=== PATIENT | female | born 1950 | race Caucasian/White ===

== ENCOUNTER 2017-11-14 09:59 | Day surgery (SDC) | payer MEDICARE, BC ==
[~2017-11-14 09:59] MED LIST: Acetaminophen TAB* 325 MG PO PRN; Buffered Lidocaine 0.9% SYRIN* 5 ML/SYR SYRINGE INTRADERM ONE
[2017-11-14] MEDS ORDERED: Midazolam* 1 MG/ML 5 ML VIAL (5 MG) ONE (11:10)
[2017-11-14] MEDS ORDERED: Cyclopentolate 1% OPTH.SOL* 2 ML BTL ONE (11:17)
[2017-11-14] MEDS ORDERED: Povidone Iodine 5% OPTH* 30 ML BTL ONE (11:17)
[2017-11-14] MEDS ORDERED: Lidocaine 1%* 5 ML VIAL ONE (11:17)
[2017-11-14] MEDS ORDERED: acetaZOLAMIDE TAB* 250 MG ONE (11:17)
[2017-11-14] MEDS ORDERED: Phenylephrine 2.5% OPTH.SOL* 2 ML BTL ONE (11:17)
[2017-11-14] MEDS ORDERED: Neomycin/Polymy/Dex OPHTH.OIN* 3.5 GM ONE (11:17)
[2017-11-14] MEDS ORDERED: Ketorolac 0.5% OPHTH (NF) 0.5 % 5 ML BTL ONE (11:18)
[2017-11-14] MEDS ORDERED: Tetracaine 0.5% OPTH.SOL 4 ML* 1 DROP BTL ONE (11:18)
[2017-11-14] MEDS ORDERED: Tropicamide 1% OPTH.SOL* BTL ONE (11:18)
[2017-11-14 12:21] VITALS: BP 176/69
--- NOTE | 2017-11-14 21:50 | OP ---
DATE OF OPERATION: 11/14/17 - [facility] DATE OF : 48 SURGEON: Jose Toney MD ANESTHESIA: Monitored anesthesia care. PRE-OP DIAGNOSIS: Cataract, right eye. POST-OP DIAGNOSIS: Cataract, right eye. PROCEDURE PERFORMED: Extracapsular cataract extraction of the right eye with intraocular lens implant. IMPLANTS: SN60WF 9.5 diopter lens to the right eye. DESCRIPTION OF PROCEDURE: The patient was given phenylephrine 2.5% and cyclopentolate 1% eyedrops to the operative eye in the preoperative area. The patient was taken to the operating room where a time-out was taken to identify the correct patient, site, and side of the surgery. The patient's right eye was prepped and draped in the usual sterile fashion with 5% Betadine. A second time- out was taken to verify the correct patient, site and side of the surgery , and correct lens implant. A lid speculum was placed to the right eye. A 1- mm paracentesis blade was used to make a clear corneal incision in the superotemporal position. Preservative-free 1% lidocaine was injected into the anterior chamber. DisCoVisc was then injected into the anterior chamber. A 2.75 -mm keratome blade was used to make a triplanar incision at the inferotemporal position. A cystotome initiated a capsulorrhexis, which was completed with Utrata forceps in a continuous and curvilinear manner. Hydrodissection of the lens was performed with BSS on a cannula. The lens could be spun in the capsular bag. The phacoemulsification handpiece was used with a divide-and- conquer technique to remove the nucleus with 8.44 CDE. The I/A handpiece then removed the residual cortical lens material. DisCoVisc was injected to inflate the capsular bag. The planned SN60WF 9.5 diopter lens was injected into the capsular bag. The residual DisCoVisc was removed from the eye with the I/A handpiece. The corneal incisions were hydrated and no leaks occurred at physiologic pressure around 20 mmHg per palpation. The lid speculum was removed and drapes removed. Maxitrol ointment was placed on the surface of the operative eye. An adhesive patch and shield was then placed on the operative eye. The patient was taken to the postoperative area in stable condition. [id number]/[facility] #: [id number] [facility]
== END 2017-11-14 12:22 | disposition home or self-care (01) ==
LOC: OREAST 09:59
PROVIDERS: ATTEND Student in an Organized Health Care Education/Training Program
DX: H25.11 Age-related nuclear cataract, right eye (principal); H43.813 Vitreous degeneration, bilateral; I34.0 Nonrheumatic mitral (valve) insufficiency; M81.0 Age-related osteoporosis without current pathological fracture; E78.5 Hyperlipidemia, unspecified; I10 Essential (primary) hypertension
CPT/HCPCS: A9270-GY; J2250; V2632

== ENCOUNTER 2017-11-21 08:44 | Day surgery (SDC) | payer MEDICARE, BC ==
[2017-11-21] MEDS ORDERED: Midazolam* 1 MG/ML 2 ML VIAL (2 MG) ONE ×2 (10:02→10:08)
[2017-11-21 10:53] VITALS: BP 151/71
[2017-11-21] MEDS ORDERED: Povidone Iodine 5% OPTH* 30 ML BTL ONE (13:58)
[2017-11-21] MEDS ORDERED: Phenylephrine 2.5% OPTH.SOL* 2 ML BTL ONE (13:58)
[2017-11-21] MEDS ORDERED: Ketorolac 0.5% OPHTH (NF) 0.5 % 5 ML BTL ONE (13:58)
[2017-11-21] MEDS ORDERED: Tropicamide 1% OPTH.SOL* BTL ONE (13:58)
[2017-11-21] MEDS ORDERED: Cyclopentolate 1% OPTH.SOL* 2 ML BTL ONE (13:58)
[2017-11-21] MEDS ORDERED: Neomycin/Polymy/Dex OPHTH.OIN* 3.5 GM ONE (13:58)
[2017-11-21] MEDS ORDERED: Lidocaine 1%* 5 ML VIAL ONE (13:58)
[2017-11-21] MEDS ORDERED: acetaZOLAMIDE TAB* 250 MG ONE (13:58)
[2017-11-21] MEDS ORDERED: Tetracaine 0.5% OPTH.SOL 4 ML* 1 DROP BTL ONE (13:58)
--- NOTE | 2017-11-21 14:02 | OP ---
DATE OF OPERATION: 11/21/17 LOCATED WITHIN [facility] DATE OF : 48 SURGEON: Jose Toney MD ANESTHESIA: Monitored anesthesia care. PRE-OP DIAGNOSIS: Cataract, left eye. POST-OP DIAGNOSIS: Cataract, left eye. OPERATIVE PROCEDURE: Extracapsular cataract extraction of the left eye with intraocular lens implant. IMPLANTS: SN60WF 8.5 Diopter lens to the left eye. COMPLICATIONS: None. DESCRIPTION OF PROCEDURE: The patient was given phenylephrine 2.5% and cyclopentolate 1% eye drops to the operative eye in the preoperative area. The patient was taken to the operating room where a time-out was taken to identify the correct patient, site, and side of the surgery. The patient's left eye was prepped and draped in the usual sterile fashion with 5% Betadine. A second time -out was taken to verify the correct patient, site and side of the surgery, and correct lens implant. A lid speculum was placed to the left eye. A 1-mm paracentesis blade was used to make a clear corneal incision in the inferotemporal position. Preservative-free 1% lidocaine was injected into the anterior chamber. DisCoVisc was then injected into the anterior chamber. A 2.75 mm keratome blade was used to make a triplanar incision at the superotemporal position. A cystotome initiated a capsulorrhexis, which was completed with Utrata forceps in a continuous and curvilinear manner. Hydrodissection of the lens was performed with BSS on a cannula. The lens could be spun in the capsular bag. The phacoemulsification handpiece was used with a ueretb-[id number] technique to remove the nucleus with 9.95 CDE. The I/ A handpiece then removed the residual cortical lens material. DisCoVisc was injected to inflate the capsular bag. The planned SN60WF 8.5 Diopter lens was injected into the capsular bag. The residual DisCoVisc was removed from the eye with the I/A handpiece. The corneal incisions were hydrated and no leaks occurred at physiologic pressure around 20 mmHg per palpation. The lid speculum was removed and drapes removed. Maxitrol ointment was placed to the surface of the operative eye. An adhesive patch and shield was then placed on the operative eye. The patient was taken to the postoperative area in stable condition. [id number]/[facility] #: [id number] [facility]
== END 2017-11-21 10:50 | disposition home or self-care (01) ==
LOC: OREAST 08:44
PROVIDERS: ATTEND Student in an Organized Health Care Education/Training Program
DX: H25.12 Age-related nuclear cataract, left eye (principal); H43.813 Vitreous degeneration, bilateral; I10 Essential (primary) hypertension; E78.5 Hyperlipidemia, unspecified; M81.0 Age-related osteoporosis without current pathological fracture; I34.0 Nonrheumatic mitral (valve) insufficiency; M19.90 Unspecified osteoarthritis, unspecified site
CPT/HCPCS: A9270-GY; J2250; V2632

== ENCOUNTER 2021-11-12 06:45 | Observation (INO) ==
[~2021-11-12 06:45] MED LIST changes: -Acetaminophen TAB* 325 MG PO PRN; -Buffered Lidocaine 0.9% SYRIN* 5 ML/SYR SYRINGE INTRADERM ONE; +Buffered Lidocaine 1% SYRIN 1 ml INTRADERM ONE; +Famotidine IV 10 MG/ML 2 ml VIAL (20 mg) IV ONE; +Lactated Ringers 1000 ml BAG 1,000 ML IV SCH
[2021-11-12] MEDS ORDERED: ceFAZolin 2 GM in NS PREMIX 2 GM/100 ML BAG IVPB ONE (07:16)
[2021-11-12] MEDS ORDERED: Dexamethasone IV 4 MG/ML VIAL 1 ml VIAL ONE (08:37)
[2021-11-12] MEDS ORDERED: Lidocaine 2% PF 10 ML AMP ONE (08:37)
[2021-11-12] MEDS ORDERED: Phenylephrine IV 10 MG/ML 1 ml VIAL ONE (08:37)
[2021-11-12] MEDS ORDERED: Midazolam 2 mg/2 ml VIAL 1 mg/ml 2 ml VIAL (2 mg) ONE (08:37)
[2021-11-12] MEDS ORDERED: fentaNYL 100 mcg/2 ml 50 MCG/ML VIAL ONE (08:37)
[2021-11-12] MEDS ORDERED: Ondansetron 4 mg VIAL 2 MG/ML 2 ml VIAL ONE (08:37)
[2021-11-12] MEDS ORDERED: Acetaminophen IV 1 GM/100ML 100 ML IV ONE (09:32)
[2021-11-12] MEDS ORDERED: EPHEDrine (Pressors) 50 MG/ML VIAL ONE (09:46)
[2021-11-12] MEDS ORDERED: Lactulose 30 ml UDC PO PRN (10:09)
[2021-11-12] MEDS ORDERED: Magnesium Hydroxide LIQ 30 ML UDC PO PRN (10:09)
[2021-11-12] MEDS ORDERED: Ondansetron ODT 4 mg TAB 4 MG TAB PO PRN (10:09)
[2021-11-12] MEDS ORDERED: Ondansetron 4 mg VIAL 2 MG/ML 2 ml VIAL IV PRN (10:09)
[2021-11-12] MEDS ORDERED: Morphine 2 MG/ML SYRINGE IV PRN (10:09)
[2021-11-12] MEDS ORDERED: Propofol 10 MG/ML 20 ML BTL ONE ×2 (10:42)
[2021-11-12] MEDS ORDERED: Naloxone 0.4 mg VIAL 0.4 mg/ml 1 ml VIAL IV PRN (11:12)
[2021-11-12] MEDS ORDERED: HYDROmorphone 1 MG/1 ML SYRINGE ONE (12:12)
[2021-11-12] MEDS: HYDROmorphone 1 MG/1 ML SYRINGE IV PRN ×3 (12:13→12:51)
[2021-11-12] MEDS: Lactated Ringers 1000 ml BAG 1,000 ML IV SCH (13:29)
[2021-11-12] MEDS: ceFAZolin 1 GM ADVAN 1 GM in NS 0.9% 50 ML 50 ML IVPB SCH (17:54)
[2021-11-12] MEDS: Magnesium Hydroxide LIQ 30 ML UDC PO SCH (21:59)
[2021-11-13] MEDS: Lactated Ringers 1000 ml BAG 1,000 ML IV SCH (01:15)
[2021-11-13] MEDS: ceFAZolin 1 GM ADVAN 1 GM in NS 0.9% 50 ML 50 ML IVPB SCH ×2 (01:17→08:51)
[2021-11-13 06:14] LABS: Hematocrit 26 % (35-47); Hemoglobin 8.9 g/dL (12.0-16.0); Mean Platelet Volume 8.6 fL (7.4-10.4); Platelet Count 166 10^3/uL (150-450)
[2021-11-13 06:29] LABS: Calcium 8.8 mg/dL (8.6-10.3); eGFR CKD-EPI 65.3 (>60)
[2021-11-13 06:35] LABS: Potassium 5.3 mmol/L (3.5-5.0)
[2021-11-13] MEDS: Magnesium Hydroxide LIQ 30 ML UDC PO SCH (08:52)
[2021-11-13] MEDS ORDERED: Vitamin THERAPEUTIC TAB PO SCH (09:00)
[2021-11-13 11:51] VITALS: BP 119/49
== END 2021-11-13 14:45 | disposition home or self-care (01) ==
LOC: SSU 06:45 → OR 06:45
PROVIDERS: ADMIT Orthopaedic Surgery Adult Reconstructive Orthopaedic Surgery; ATTEND Orthopaedic Surgery Adult Reconstructive Orthopaedic Surgery